=== PATIENT | male | born 2000 | race Caucasian/White ===

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

== ENCOUNTER 2019-05-08 09:15 | Emergency (ER) | payer BC ==
--- NOTE | 2019-05-08 09:22 | ER Report ---
History and Physical Time Seen By MD: 09:17 HPI/ROS CHIEF COMPLAINT: Coughing up blood HISTORY OF PRESENT ILLNESS: Patient is a 19-year-old male who was diagnosed with strep pharyngitis presents emergency department complaining of "coughing up blood". Patient was diagnosed with group A strep pharyngitis approximately 10 days ago and completed a course of amoxicillin but is still having pain swelling and today noticed some blood-tinged sputum when he coughed. Denies fevers or chills denies chest pain or abdominal pain. Denies nausea vomiting or diarrhea. REVIEW OF SYSTEMS: Constitutional: No fever, no chills. Eyes: No discharge. ENT: Sore throat Cardiovascular: No chest pain, no palpitations. Respiratory: Coughing up blood Gastrointestinal: No abdominal pain, no vomiting. Genitourinary: No hematuria. Musculoskeletal: No back pain. Skin: No rashes. Neurological: No headache. Allergies: Coded Allergies: No Known Allergies (Verified Allergy, Mild, 08/25/09) Past Medical/Surgical History Noncontributory Hx Smoking: No Smoking Status: Never Smoker Hx Substance Use Disorder: No Hx Alcohol Use: Yes (OCCATIONAL) Constitutional Vital Sign - Last 24 Hours 05/08/19 05/08/19 05/08/19 05/08/19 09:15 09:19 09:45 10:00 Temp 97.7 Pulse 89 83 Resp 20 B/P (MAP) 142/82 (102) 142/82 126/83 (97) Pulse Ox 90 92 O2 Delivery Room Air Physical Exam General Appearance: Alert, no distress. Eyes: Pupils equal and round no pallor or injection. ENT, Mouth: Ears: Tympanic membranes are normal. Nose: No bleeding. Mouth: Mucous membranes are moist. Throat: Erythematous tonsillar area with palatal petechiae no obvious exudat es noted no pointing mass uvula is symmetrical Musculoskeletal: Neck is supple non tender, no adenopathy. Skin: Warm and dry, no rashes. Medical Decision Making ED Course/Re-evaluation ED Course 05/08/2019 9:33:43 am hemoptysis likely secondary to group A strep pharyngitis patient still has the symptoms we'll check chest x-ray along with soft tissue neck as patient does have hot potato voice considering early peritonsillar abscess or retropharyngeal abscess. Decision to Disposition Date: May 08, 2019 Decision to Disposition Time: 10:36 Depart Departure Latest Vital Signs Vital Signs Date Time Temp Pulse Resp B/P (MAP) Pulse Ox O2 Delivery O2 Flow Rate FiO2 05/08/19 10:00 126/83 (97) 05/08/19 09:45 83 92 05/08/19 09:19 97.7 20 Room Air Impression: Primary Impression: Pharyngitis Condition: Improved Disposition: HOME OR SELF-CARE Departure Forms: ER Transition Record, Medications Reconciliation, Off Work/School Form, School or Work Release?: Work Number of days to be released: 2 Patient Portal Information Patient Instructions: Pharyngitis (GEN) Additional Instructions: Continue your steroids until completed Problem Qualifiers Primary Impression: Pharyngitis Pharyngitis/tonsillitis etiology: unspecified etiology Qualified Codes: J02.9 - Acute pharyngitis, unspecified BUDDY LAYNE MD May 08, 2019 09:21
[2019-05-08 10:00] VITALS: BP 126/83
--- NOTE | 2019-05-08 10:16 | RADIOLOGY IMAGING REPORT ---
FACILITY: [facility] - [place] PATIENT NAME: Osvaldo Coronado : 2000 MR: [id number] V: [id number] EXAM DATE: ORDERING PHYSICIAN: BUDDY LAYNE TECHNOLOGIST: Location: [facility] - [place] Patient: Osvaldo Coronado : 2000 Visit/Account:[id number] Date of Sevice: 05/08/2019 2 VIEWS CHEST INDICATION: hemoptysis COMPARISON: None available FINDINGS: Cardiomediastinal silhouette: Heart size within normal limits. Lungs: There is no focal infiltrate or lobar consolidation. There is no pneumothorax or pleural effusion. Bones and soft tissues: Unremarkable IMPRESSION: 1. No acute cardiopulmonary process. Report Dictated By: Hunter Mckinnon MD at 05/08/2019 10:06 AM Report E-Signed By: Hunter Mckinnon MD at 05/08/2019 10:07 AM WSN:[id number]
--- NOTE | 2019-05-08 10:17 | RADIOLOGY IMAGING REPORT ---
FACILITY: [facility] PATIENT NAME: Osvaldo Coronado : 2000 MR: [id number] V: [id number] EXAM DATE: ORDERING PHYSICIAN: BUDDY LAYNE TECHNOLOGIST: Location: [facility] - [place] Patient: Osvaldo Coronado : 2000 Visit/Account:[id number] Date of Sevice: 05/08/2019 NECK SOFT TISSUE History: Hemoptysis. Throat swelling. Comparison study: None. Findings: Neck soft tissues: There is no swelling of the epiglottis. The adenoids are minimally prom inent. The uvula is also mildly prominent. Correlation with oral pharyngeal exam recommended. CHEST: The heart size is normal and there is no infiltrate in either lung. There is no pleural effusi on. IMPRESSION: 1. No findings of epiglottitis. 2. Prominence of the adenoids and uvula. 3. No active disease in the chest. Report Dictated By: Yogesh Adrian MD at 05/08/2019 10:02 AM Report E-Signed By: Yogesh Adrian MD at 05/08/2019 10:08 AM WSN:[id number]
[2019-05-08] MEDS ORDERED: LIDOCAINE 1% MDV 200 MG/20 ML INJ ONE (10:20)
[2019-05-08] MEDS ORDERED: cefTRIAXone 1 GM VIAL IM ONE (10:20)
== END 2019-05-08 10:40 | disposition home or self-care (01) ==
LOC: ER 09:38
DX: J02.9 Acute pharyngitis, unspecified (principal)
CPT/HCPCS: 70360; 71046; 96372; 99284; J0696; J2001